=== PATIENT | male | born 1980 | race Caucasian/White ===

== ENCOUNTER 2018-07-29 09:28 | Emergency (ER) | payer OTHER ==
[2018-07-29] MEDS ORDERED: HYDROmorphone 1 MG/ML Syringe IVPUSH ONE (09:31)
[2018-07-29] MEDS ORDERED: Diphtheria,Pertussis(Acell),Tetanus Vaccine 0.5 ML SDV IM ONE (09:56)
[2018-07-29] MEDS ORDERED: Silver Sulfadiazine 1% Crm 400 GM Jar TOP ONE (10:11)
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
== END 2018-07-29 11:20 | disposition home or self-care (01) ==
LOC: JP.ED 09:28
DX: T23.341A Burn of third degree of multiple right fingers (nail), including thumb, initial encounter (principal); T23.342A Burn of third degree of multiple left fingers (nail), including thumb, initial encounter; Z23 Encounter for immunization; Z87.891 Personal history of nicotine dependence; W86.8XXA Exposure to other electric current, initial encounter
CPT/HCPCS: 16020; 80305; 90471; 90715; 96374; 99283; A9270; J1170